=== PATIENT | female | born 1970 | race Caucasian/White ===

== ENCOUNTER → 2019-01-29 10:00 | Outpatient (CLI) | payer BC ==
[~2019-01-29 10:00] MED LIST: ADIPEX-P37.5 M1 PO; LEVOTHYROXINE50 MCG PO; MOBIC7.5 MG PO; RANITIDINE HCL150 M1 PO
== END | disposition home or self-care (01) ==
LOC: D.MAMMO 10:00
PROVIDERS: ATTEND Clinical Nurse Specialist Family Health
DX: Z12.31 Encounter for screening mammogram for malignant neoplasm of breast (principal)

== ENCOUNTER 2019-03-03 09:36 | Day surgery (SDC) | payer BC, OTHER ==
[2019-02-28 11:17] LABS: BASOPHILS 0.2 % (0-2); EOSINOPHILS 1.1 % (0-7); HEMATOCRIT 38.6 % (36.0-48.0); HEMOGLOBIN 12.7 g/dL (12-16); IMMATURE GRANULOCYTES 0.2 % (0-5); MCH 29.5 pg (26.0-34.0); MCHC 32.9 g/dL (31.0-37.0); MCV 89.8 fL (80.0-100.0); MEAN PLATELET VOLUME 9.2 fL (7.4-10.4); MONOCYTES 8.6 % (2-11); NEUTROPHILS 60.9 % (40-80); PLATELET COUNT 223 10x3/uL (130-400); WBC 5.6 10x3/uL (4.8-10.8)
[2019-02-28 11:41] LABS: ANION GAP 7.8 mmol/L (8-16); CALCIUM 9.1 mg/dL (8.5-10.1); CARBON DIOXIDE 28.6 mmol/L (21.0-32.0); CREATININE - SERUM 0.9 mg/dL (0.6-1.3); POTASSIUM - SERUM 4.4 mmol/L (3.5-5.1)
[~2019-03-03] VITALS: Ht 149.9 cm; Wt 67.4 kg
[2019-03-03 09:09] VITALS: BP 134/92; BMI 30.1
[2019-03-03 09:19] LABS: HCG URINE NEGATIVE (NEGATIVE)
[2019-03-03 14:35] VITALS: BP 117/73
--- NOTE | 2019-03-03 14:35 | NUR ---
pt received from assistant director of security. iv placed on pump at 125ml/hr, scd's placed on pt, beryr running to gravity clear yellow urine.
[2019-03-03 14:50] VITALS: BP 124/72
[2019-03-03 15:30] VITALS: BP 126/70
--- NOTE | 2019-03-03 15:51 | NUR ---
PT LYING SUPINE IN BED. EYES CLOSED. WAKES UPON VERBAL STIMULATION. C/O ABDOMINAL CRAMPING OF "8" ON 0-10 PAIN SCALE. MORPHINE 2 MG GIVEN SIVP OVER 2 MINUTES. PT INSTRUCTED ON MED. VERBALIZES UNDERSTANDING.
[2019-03-03 16:10] VITALS: BP 131/76
--- NOTE | 2019-03-03 16:10 | NUR ---
FAMILY AT BEDSIDE STATES PAIN MEDS GIVEN HAVE SEEMED TO HELP PT. PT SLEEPING AT THIS TIME.
--- NOTE | 2019-03-03 17:00 | NUR ---
NEW BAG OF LR 125ML/HR PLACED ON IV PUMP AT THIS TIME. PT SLEEPING W/ AT BEDSIDE.
--- NOTE | 2019-03-03 18:00 | NUR ---
PT SLEEPING, EASY TO WAKE. PT ABLE TO FOLLOW VERBAL INSTRUCTIONS. AT BEDSIDE.
--- NOTE | 2019-03-03 18:20 | NUR ---
PT SITTING UP TAKING BITES OF FOOD AT THIS TIME. SPOUSE REMAINS AT BEDSIDE.
--- NOTE | 2019-03-03 19:26 | NUR ---
ROUNDS MADE WITH REPORT FROM ERIC HATCH. PT IS RESTING WELL AT THIS TIME. SHE AROUSES TO SOFT VERBAL STIMULATION. PT AND WERE INFORMED THAT WE WOULD BE BACK SHORTLY TO DO ASSESSMENT. PT VERBALIZES UNDERSTANDING. DENIES NEEDS AT THIS TIME. BED IN LOW POSITION. 2 SIDERAILS UP. CALL LIGHT IN REACH.
--- NOTE | 2019-03-03 20:40 | NUR ---
ASSESSMENT PER FLOW SHEET. SHE IS STILL A LITTLE DROWSEY AT THIS TIME. 2 LOWER ABD AND 1 UMB INC WITH DERMABOND. CLEAN DRY AND INTACT WITH NO DRAINAGE. FRESH ICE PACK PLACED. IV IN LEFT WRIST INTACT WITH NO REDNESS OR EDEMA INFUSING VIA PUMP LR AT 125ML/ HR. VS OBTAINED. STOVER CATHETER DRAINING CLEAR YELLOW URINE. O2 at 2L via NC. PT RATES PAIN AN 8/10. INFORMED PT THAT THIS RN WOULD GIVE MEDS WHEN DUE. SCD IN PLACE AND WORKING WELL. PT DEMONSTRATED USE OF IS WITH GOOD EFFORT. SERVED PT WATER WITH LITTLE ICE PER HER REQUEST.
--- NOTE | 2019-03-03 21:12 | NUR ---
TORADOL GIVEN AT THIS TIME IV. SHE RATES HER PAIN 8/10.
[2019-03-03 21:14] VITALS: BP 131/80; Ht 149.9 cm; Wt 67.4 kg
--- NOTE | 2019-03-03 21:44 | NUR ---
MORPHINE 4 MG IV GIVEN FOR PAIN. PAIN RATING IS A 7.
--- NOTE | 2019-03-03 22:00 | NUR ---
IL IS RESTING QUIETLY WITH HER EYES CLOSED. NO C/O OR NEEDS AT THIS TIME. SLEEPING AT THE BEDSIDE.
[2019-03-04] VITALS: BP 127/76
--- NOTE | 2019-03-04 | NUR ---
PT AWAKE TO SOFT SPOKEN STIMULI. VS TAKEN. STOVER DRAINING CLEAR YELLOW URINE. STATES HER PAIN IN UNDER CONTROL AT THIS TIME. RATES PAIN A 4. O2 CONT AT 2L VIA NASAL CANNULA. IV LR CONT TO INFIUSE. SCD IN PLACE AND WORKING PROPERLY. CONT. SLEEPING AT BEDSIDE.
--- NOTE | 2019-03-04 02:20 | NUR ---
PT IS RESTING WITH HER EYES CLOSED. SHE HAS NO C/O AT THIS TIME. AT BEDSIDE. Martínez IS DRAINING CLEAR YELLOW URINE. IV FLUIDS ARE INFUSING.
[2019-03-04 04:10] VITALS: BP 112/71
--- NOTE | 2019-03-04 04:10 | NUR ---
PT IS DOING WELL. PT IV WAS SALINE LOCKED. STOVER CATHER REMOVED. 1200 ML OBTAINED FROM CATHETER BAG. PT UP TO BR WITH ASSISTANCE. GAIT STEADY. PT VOID SMALL AMT OF CLEAR YELLOW UNINE WITH A VERY SLIGHT RED TINGE. PT THEN AMBULATED TO HER NEW ROOM, 1221. THE HEATER IN HER ROOM WASN'T WORKING. AT BEDSIDE. NO C/O PAIN AT THIS TIME. SIDERAILS X2, SCD'S IN PLACE.
--- NOTE | 2019-03-04 05:34 | NUR ---
IV TORADOL WAS GIVEN. PT RATES HER PAIN AT A 4. SHE IS RESTING IN BED WITH HER EYES CLOSED AT THIS TIME. AT BEDSIDE.
[2019-03-04 06:03] LABS: BASOPHILS 0 % (0-2); EOSINOPHILS 0 % (0-7); HEMATOCRIT 41.1 % (36.0-48.0); HEMOGLOBIN 13.4 g/dL (12-16); IMMATURE GRANULOCYTES 0.3 % (0-5); LYMPHOCYTES 7.2 % (15-50); MCH 29.3 pg (26.0-34.0); MCHC 32.6 g/dL (31.0-37.0); MCV 89.9 fL (80.0-100.0); NEUTROPHILS 87.5 % (40-80); RBC 4.57 10x6/uL (4.00-5.40); RDW 12.8 % (11.5-14.5); WBC 13.3 10x3/uL (4.8-10.8)
--- NOTE | 2019-03-04 06:13 | NUR ---
PT IS SLEEPING. RESPIRATIONS SLOW AND REGULAR. WAS LEFT UNDISTURBED AT THIS TIME.
[2019-03-04 06:24] LABS: PLATELET COUNT 280 10x3/uL (130-400)
[2019-03-04 07:15] VITALS: BP 128/68
--- NOTE | 2019-03-04 07:15 | NUR ---
PT SITTING UP IN BED AWAKE & ALERT.pT STATES PAIN IS " A 2 NOT BAD AT ALL & IS TOLERABLE." PT W/ NO S/S OF DISTRESS & NO C/O AT THIS TIME.
--- NOTE | 2019-03-04 07:22 | NUR ---
PT UP TO VOID FOR THE FIRST TIME. SHE VOIDED 400CC CLEAR YELLOW URINE IN THE HAT. PT AMBULATED WELL TO AND FROM THE BR. SCD'S IN PLACE. FAMILY AT BEDSIDE. PT STATES SHE IS STARVING. INFORMED HER SHE WOULD GET A REGULAR DIET. WAS TOLD TO CALL THE NEXT TWO TIMES SHE NEEDS TO VOID SO IT CAN BE MEASURED.
--- NOTE | 2019-03-04 07:57 | NUR ---
DR. JULIO IN ROOM W/ PT AT THIS TIME.
--- NOTE | 2019-03-04 09:23 | NUR ---
PT APPEARS TO BE RESTING W/ EYES CLOSED. PT'S IN ROOM W/ PT AT THIS TIME.
--- NOTE | 2019-03-04 09:35 | NUR ---
L/M FOR DR. JULIO FOR WRITTEN D/C ORDERS.
--- NOTE | 2019-03-04 09:59 | NUR ---
DR. JULIO CALLED WITH VERBAL ORDER MAY D/C PT HOME TODAY.
--- NOTE | 2019-03-04 10:50 | NUR ---
FLU SHOT GIVEN TO PT AT THIS TIME. PT STATES PAIN 2/10 IS TOLERABLE.
--- NOTE | 2019-03-04 11:50 | NUR ---
PT GETTING UP TO USE RR AT THIS TIME. PT REFUSES RN ASSISTANCE AT THIS TIME STATES WILL HELP IF NEEDED.
--- NOTE | 2019-03-04 12:03 | NUR ---
PT GIVEN MOTRIN @1203 INSTEAD OF 0900 DUE TO TOADOL BEING GIVEN AT 0530 TODAY. D/C INSTRUCTIONS GIVEN WRITTEN & VERBAL. PT'S RX'S ALSO GIVEN TO PT. PT VOICED UNDERSTANDING OF ALL INSTRUCTIONS GIVEN.
--- NOTE | 2019-03-04 12:25 | NUR ---
PT'S SALINE LOCK REMOVED AT THIS TIME.
--- NOTE | 2019-03-04 12:27 | NUR ---
PT D/C'D TO AUTO VIA WHEELCHAIR BY VOLUNTEER AT THIS TIME IN STABLE CONDITION.
--- NOTE | 2019-03-27 08:15 | OP ---
PATIENT NAME: FELICIA GARCIA V MEDICAL RECORD: [id number] :72 LOCATION:[facility] ADMISSION DATE: SURGEON: DUNCAN JULIO MD DATE OF OPERATION: 03/03/2019 PREOPERATIVE DIAGNOSIS: Uterine prolapse. POSTOPERATIVE DIAGNOSIS: Uterine prolapse. PROCEDURES: 1. Laparoscopically assisted vaginal hysterectomy. 2. Bilateral salpingo-oophorectomy. 3. Vault suspension with modified Godinez's. SURGEON: Duncan Julio MD ORGANISATION AND METHODS ANALYST: Rogelio. ANESTHESIOLOGIST: Dr. De La Cruz. ANESTHETIC: General. FINDINGS: Uterus prolapses to the hymenal ring. The tubes and ovaries are unremarkable. What was visualized of the abdominal anatomy was unremarkable. SPECIMEN REMOVED: Uterus with cervix, bilateral tubes and ovaries. SPECIMEN DISPOSITION: All specimens to pathology. ESTIMATED BLOOD LOSS: Less than or equal to 300 cc FLUIDS: 1500 cc lactated Ringer's. URINE OUTPUT: 200 cc of clear urine. COMPLICATIONS: None. DRAIN: Nam to gravity. INDICATIONS: The patient is a 48-year-old female with pelvic pressure. The patient also has dyspareunia and feels a bulge at her introitus with bearing down prolonged standing. The patient is considered for laparoscopic-assisted vaginal hysterectomy, bilateral salpingo-oophorectomy, and any indicated procedure. The patient also has been presented with information regarding [facility] and hormone replacement therapy. DESCRIPTION OF PROCEDURE: After informed consent was assured, the patient was taken to the operating room where anesthetic is obtained. The patient was placed in Yellofin stirrups and all prepped and draped. Attention was directed to the abdomen where an incision was made and the trocar inserted. Pneumoperitoneum developed and accessory trocars were placed in the right and left lower quadrants. With a grasper inserted from the left, the right tube and ovary were elevated and using the Thunderbeat coagulation cutter, the infundibulopelvic ligament was compressed, coagulated, and . This dissection was carried out underneath the uterine ovarian ligament. This was OPERATIVE REPORT [id number] FELICIA GARCIA V repeated on the contralateral side. From the right grasper was inserted, elevating the left tube and ovary. Using the Thunderbeat coagulation cutter infundibulopelvic ligament was compressed, coagulated, and . Again, the dissection was carried out underneath the left uterine ovarian ligament. Attention was now directed to the vagina. The legs were positioned and a weighted speculum introduced. The cervix is circumferentially incised with a Bovie cautery at the level of the bladder flap. A reverse Chevron is placed posterior to the cervix. This portion of the dissection was grasped with pickups with teeth and then the posterior cul-de-sac was entered sharply. The peritoneum was secured to the mucosa. Using Harry-Flaxton clamps, clamp was placed on the right and left side to extend this incision and also incorporating the uterine ovarian ligaments. The uterine ovarian ligaments were tagged to be used later in the procedure. Attention was directed anteriorly where dissection began of the bladder free of the cervix. Once the anterior pouch was entered, Harry-Flaxton clamps were used to clear out the remaining portions of the cardinal ligaments. These pedicles were developed sharply and 0 Vicryl stick ties placed in a Harry stitch to obtain hemostasis. The dissection was carried up the remaining portion of the broad ligament until the previous dissection is encountered and the uterus, tubes, and ovaries were removed from the pelvis. The pelvis is now inspected and adequate hemostasis has been achieved. The cuff was now closed in anterior to posterior fashion. A stitch has been placed through the posterior cuff through the right uterosacral ligament back through the left uterosacral ligament back into the abdomen or back into the vagina. This is tagged to be tied later in the case. The close was carried down to the level of the uterosacral ligaments, which were now plicated in the midline. The close continues and once that is completed, the aforementioned stitch of the passes into the posterior vault was now tied securing ligament support to the top of the vagina and obliterating the cul-de-sac. Sponge, lap, and needle counts correct times 2. Attention was directed abdominally. The pneumoperitoneum was reestablished and adequate hemostasis has been achieved. Pneumoperitoneum is now released and the trocars were removed and sites closed with a subcuticular stitch. Sponge, lap, needle count correct times 2. Sterile dressing is used on the laparoscopic incisions and Dermabond. TRANSINT:[id number] Voice Confirmation ID: [id number] DOCUMENT ID: [id number] 03/26/2019 Edited to correct date of operation, dmching. DUNCAN JULIO MD at 0815 CC: [id number] DICTATION DATE: 03/18/19 1339 COURTESY DRIVER: 03/18/19 1643 [facility] [place] 03/04/19 [id number] [place] [address]
== END 2019-03-04 12:27 | disposition home or self-care (01) ==
LOC: D.OPS 09:36 → D.PAN 10:30 → D.WS 13:39 → D.OPS 03-04 12:27
PROVIDERS: Student in an Organized Health Care Education/Training Program; ATTEND Obstetrics & Gynecology
DX: N81.4 Uterovaginal prolapse, unspecified (principal)

== ENCOUNTER 2020-06-16 15:30 | Outpatient (CLI) | payer BC | END 2020-06-16 16:00 | disposition home or self-care (01) | LOC: D.MAMMO 15:30 | PROVIDERS: ATTEND Family Medicine | DX: Z12.31 Encounter for screening mammogram for malignant neoplasm of breast (principal) ==